=== PATIENT | male | born 1980 | race Caucasian/White ===

== ENCOUNTER 2018-01-22 19:42 | Emergency (ER) | payer SELFPAY ==
[2018-01-22 19:43] VITALS: BP 176/96; PULSE 108; RESP 16; TEMP 36.8; O2SAT 100; BMI 36.5
--- NOTE | 2018-01-22 22:49 | ED.VISSUMM ---
- ER Visit Summary Date of Service: 01/22/18 Chief Complaint: Laceration History of Present Illness: The patient is a 37 M with no primary care physician. He reports that he was on a ladder cleaning out gutters when it slid on wet pavement out from under it. He reports that he was approximately 4 feet off the ground when the ladder spun and he fell off hitting his head and right elbow. He denies loss of consciousness. His tetanus is up-to-date. He reports that he has had pain is 5-10 severity. Right elbow pain is 7 out of 10 severity. Physical Examination: Vitals: Stable. Afebrile. Head: He has a 10 cm Y-shaped laceration in the superior occipital area of his scalp. There is mild active bleeding. Neck: No vertebral tenderness. Full ROM without difficulty. Cleared by NEXUS criteria. Back: No vertebral tenderness. General: A&O x 3. NAD. Cardiovascular exam: Regular rate and rhythm, no murmur, rub or gallop. Respiratory exam: Chest nontender. No crepitus. Clear to auscultation bilaterally. No wheezes or stridor. Abdominal exam: Soft, nontender, nondistended, normal bowel sounds. No pain in RUQ or LUQ specifically. No peritoneal signs. Extremity: 1 cm laceration to the right arm posteriorly just distal to his elbow. There is no active bleeding.. No pain with range of motion. No pain with axial load of the hand. Test Results: Patient refused x-rays of his elbow. Emergency Department Course and Treatment: Patient refused pain medications. He had his wounds anesthetized and repaired. He tolerated it well. Treatment Plan: Patient will be discharged instructions follow-up the [facility] in 10-14 days for suture removal. Disposition: To home in improved and stable condition. Impression: 1. Fall. 2. Scalp laceration, 10 cm, repaired. 3. Right elbow laceration, 1 cm, repaired. Procedure note: Wound was cleansed with chlorhexidine soap. Anesthetized with 1% lidocaine without epinephrine. Copiously irrigated with normal saline. Wound was explored there is no foreign material present. The scalp wound was irregular and I am unable to close it with adelfo. It was closed with 8 simple interrupted 4-0 ethilon sutures. The elbow wound was closed with 2 simple interrupted 4-0 ethilon sutures. the patient tolerated it well. This note was generated with [employer] dictation software. It may contain incorrect words, spelling, and punctuation that were not noted in review of the chart prior to signing ED Disposition - Plan for ED Patient: Disposition: Home or Assisted Living Chief Complaint: Head Injury Instructions: ED Laceration Scalp Stitch Or Stap Referrals: Cassia Hernandez [NON-STAFF] - 10-14 Days suture removal
[2018-01-22 22:55] VITALS: BP 154/84; PULSE 85; RESP 16; O2SAT 99
--- NOTE | 2018-01-22 22:55 | ED.RN ---
REVIEWED D/C INSTRUCTIONS, FOLLOW UP CARE, AND S/S THAT WOULD WARRANT A RETURN TO THE ED WITH PT. PT VERBALIZED AN UNDERSTANDING AND DENIES FURTHER QUESTIONS FOR THIS RN. PT SKIN P/W/D, RESP EVEN AND UNLABORED, PT A&O X 3, NO DISTRESS NOTED. PT AMBULATED OUT OF ED, GAIT STEADY.
== END 2018-01-22 22:56 | disposition home or self-care (01) ==
LOC: ED 21:47
PROVIDERS: Emergency Provider Emergency Medicine
DX: S01.01XA Laceration without foreign body of scalp, initial encounter (principal); S51.011A Laceration without foreign body of right elbow, initial encounter; R40.2410 Glasgow coma scale score 13-15, unspecified time; W11.XXXA Fall on and from ladder, initial encounter; Y93.9 Activity, unspecified; Y92.9 Unspecified place or not applicable
CPT/HCPCS: 12004; 99283

== ENCOUNTER 2020-08-04 11:00 | Outpatient (RCR) | payer MEDICAID, SELFPAY ==
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
--- NOTE | 2020-06-01 10:52 | HP.PTREVAL ---
CORNELIA BELTRE, It has been my pleasure to treat VANE SPRING over the last 23 visits for L femur fracture, R tibial fracture, L radius fracture.. Please see the progress note below for an update on the physical therapy plan of care! Subjective: To doctor in July. Sleepis fine,wakes up if lies on left side. Steps are OK with handrail. Pain over weekend is 3/10 L groin over weekend. Knee has been OK lately. Activities at home are normal outsid eof laundry to basement. 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 Off work until August 06 when he sees doctor. Having OT to break through UE scar tissue. Pt feels like he needs t be stronger to go back to wrok. More strength in L side. Able to get L foot up to put sock on the other day. Nees to do steps into truck 10 inches adn move up to 150#. Objective/Function: Walks with minimal L trendelnberg defintiely improving. Still wide MANDA but I and confiedent. Step up with L I 7 inch step, higher steps are weaker and tough for patient without UE. Able to transfer onto and off floor with L or right LE. Able to bend and touch floor on L leg now but slow and franklin and unstable. Steps require rail but are reciprocal. Pt still feels weak in L hip and functionally present with L hip weakness but much improved felxibility shown by the ability to get shoe and sock on now in cross legged position. Based on work needs, will need to be stronger to tolerate higher steps into truck and lifting heavier items out of truck to return to work. Appropriate fo rcontinued PT Plan Plan: 3x/week for 4 weeks for. 1. L hip strength. 2. Progression of functional strength especially lifting heavier weights, body mechanics, higher step up repeatedly. 3. Enusre progress of L hip flexibility via HEP and.continue gym progression on machines(I) and home strengthening. Goals still appropriate and new goals set. Call rachele new appointments approved. Goals Goal 1:: Full L forearm pronation, R ankle ROM and L hip ext rotation to help pt I get L shoe adn sock on Goal Time Frame: 4-6 Weeks Goal Progress: Having OT Goal 2:: Walk with no AD community distances without trendelnberg gait safe and I Goal Time Frame: 4-6 Weeks Goal Progress: No Ad, still trendelnberg Goal 3:: 10 inch step up repeatedly with weight without increased pain. Goal Time Frame: 4-6 Weeks Goal Progress: NEW GOAL Goal 4:: Plan to return to work Goal Time Frame: 4-6 Weeks Goal Progress: Progressing Goal 5:: 40/80 LEFS score to improve mobility adn I. Goal Time Frame: 4-6 Weeks Goal Progress: Progressing, appropriate. Goal 6:: Move 150 # weight with good body mechanics without pain increase. Goal Time Frame: 4-6 Weeks Goal Progress: NEW GOAL Anticipated Interventions Patient/Client Instruction: Educate patient on: Condition, Plan of Care For the Purpose of:: To decrease pain, To increase ROM, To improve muscle performance and motor function, To increase tolerance to activity/condition/position, To improve ability of physical actions for home/community/work/leisure Therapeutic Exercise to Include: Strength training, Balance training, Postural training, Flexibilty training, Gait and locomotor training, In an aquatic setting, Passive ROM, Active ROM, Dynamic Lumbar Stabilization For the Purpose of:: To decrease pain, To increase ROM, To improve nutrient delivery to tissue, To improve muscle performance and motor function, To increase tolerance to activity/condition/position, To decrease level of supervision to perform tasks, To improve ability of physical actions for home/community/work/leisure, To improve gait and locomotor functions Please do not hesitate to contact me at [phone] by phone or if you have questions or concerns regarding this new plan of care! Sincerely, Fritz Contreras, DPT, OCS, CSCS
--- NOTE | 2020-07-03 10:01 | HP.PTREVAL ---
CORNELIA BELTRE, It has been my pleasure to treat VANE SPRING over the last 35 visits for L femur fracture, R tibial fracture, L radius fracture.. Please see the progress note below for an update on the physical therapy plan of care! Subjective: Not alot of pain throughout the day. Basement steps are narrow and steep and still not easy. Sleep is OK, left side still hurts and is stiff after a while. Doing msot activities at home, needs to use basket for laundry in basement to get up and dwon steps. Dressing L sock and shoe still challenging , crossing legs is tough but can do it. Sees August 06. Off work at least another month to doctor's office. Doing stretching at home. R ankle sore with overdoing it. Objective/Function: 10 inch step up hesitantly but functionally x10. Single leg RDL today to the floor without pain or giving out. Walking has very minor L trendelenberg much improved but still noticeable and more so on steps. Steps reciprocally up with mild R trendelenberg, descending steps shows more weakness in eccentric control but also improving adn safe without rail. R PF ankle ROM limited and sore. L hip external rotation still about 45 degrees with lots of tensiona dn firm endfeel still limiting ability to put sock on comfortably. Overall doing much better than I thought he would be with pain, function. Appropriate to cotvaheue one more month for mirnal progression to return to work in [employer]. Fair prognosis. Plan Plan: 2x/week for 4 weeks to progrress to work simulation ex adn continue R hip strength progressing to I home program and ful l work release. Focus on strength L hip, functional progression of lifting and moving boxes, high step ups with item in hand etc. May also focus on L hip ext rotation adn R ankle PF Goals Goal 1:: Step up confidently 12 inch step to mimic work needs without hesitation or concerns. Goal Time Frame: 2-4 Weeks Goal Progress: NEW GOAL Goal 2:: Walk with no AD community distances without trendelnberg gait safe and I Goal Time Frame: 4-6 Weeks Goal Progress: Goal Met Goal 3:: 10 inch step up repeatedly with weight without increased pain. Goal Time Frame: 4-6 Weeks Goal Progress: Goal Met, but hesitant Goal 4:: Plan to return to work Goal Time Frame: 4-6 Weeks Goal Progress: needs strength Goal 5:: 40/80 LEFS score to improve mobility adn I. Goal Time Frame: 4-6 Weeks Goal Progress: Goal Met Goal 6:: Move 150 # weight with good body mechanics without pain increase. Goal Time Frame: 4-6 Weeks Goal Progress: Progressing Anticipated Interventions Patient/Client Instruction: Educate patient on: Condition, Plan of Care For the Purpose of:: To decrease pain, To increase ROM, To improve muscle performance and motor function, To increase tolerance to activity/condition/position, To improve ability of physical actions for home/community/work/leisure Therapeutic Exercise to Include: Strength training, Balance training, Postural training, Flexibilty training, Gait and locomotor training, In an aquatic setting, Passive ROM, Active ROM, Dynamic Lumbar Stabilization For the Purpose of:: To decrease pain, To increase ROM, To improve nutrient delivery to tissue, To improve muscle performance and motor function, To increase tolerance to activity/condition/position, To decrease level of supervision to perform tasks, To improve ability of physical actions for home/community/work/leisure, To improve gait and locomotor functions Please do not hesitate to contact me at [phone] by phone or if you have questions or concerns regarding this new plan of care! Sincerely, REBECCA RolleT, OCS, CSCS
--- NOTE | 2020-08-04 10:21 | HP.PTREVAL_ITS ---
CORNELIA BELTRE, It has been my pleasure to treat VANE SPRING over the last 44 visits for L femur fracture, R tibial fracture, L radius fracture.. Please see the progress note below for an update on the physical therapy plan of care! Subjective: To doctor . Feels about ready to be done, finishes up with OT today. Pain is not an issue. R ankle remains sore much of time. Putting on left sock and tying shoe remains difficult due to flexibility. Can reach down and put it over toes but is challenging and takes extra time. Up and down steps is easy but steps at hoe are slower due to being narrower. Activities at home are pretty normal they might take a little longer. Tried playing basketball the other day at [facility]. [place]ring if body will hold up when he goes back. Can do what he needs to do but not sure about the volume. Doctor to decide this week. Sleeping on left side is tough and wakes him up, normally sleeps on right. Jean Marie kelsey stretching daily at home. Objective/Function: ROM ankle ssymmetrical and without pain with 5/5 strength. ROM knees WFL to 120+ B and without pain and 5/5 strength. ROM hips limited in flexiona dn ext rotation L vs R with groing pain mildly. 45 ext rot L and 55 R and 110 flexion R and 100 L. Extension and abduction are functional and near symterical. 4+/5 hp ext B, 5/5 abduction and flexion. Walking with a very slight trrendelenberg L but significantly improved. Steps arereciprocal with out lincoln easily ascend adn descend, can do 12 step easily with either leg. Plan Plan: Pt to doctor on Thr. Likely nearing potential with function. Appears ready to attempt return to wral, would recommend partial days to start to wean volume and montior tolerance. Pt to call after doctor visit to set up more therapy if desired by doctor or for D/C. Goals Goal 1:: Step up confidently 12 inch step to mimic work needs without hesitation or concerns. Goal Time Frame: 2-4 Weeks Goal Progress: Goal Met Goal 2:: Walk with no AD community distances without trendelnberg gait safe and I Goal Time Frame: 4-6 Weeks Goal Progress: Goal Met Goal 3:: 10 inch step up repeatedly with weight without increased pain. Goal Time Frame: 4-6 Weeks Goal Progress: Goal Met Goal 4:: Plan to return to work Goal Time Frame: 4-6 Weeks Goal Progress: needs strength Goal 5:: 40/80 LEFS score to improve mobility adn I. Goal Time Frame: 4-6 Weeks Goal Progress: Goal Met Goal 6:: Move 150 # weight with good body mechanics without pain increase. Goal Time Frame: 4-6 Weeks Goal Progress: Progressing Anticipated Interventions Patient/Client Instruction: Educate patient on: Condition, Plan of Care For the Purpose of:: To decrease pain, To increase ROM, To improve muscle performance and motor function, To increase tolerance to activity/condition/position, To improve ability of physical actions for home/community/work/leisure Therapeutic Exercise to Include: Strength training, Balance training, Postural training, Flexibilty training, Gait and locomotor training, In an aquatic setting, Passive ROM, Active ROM, Dynamic Lumbar Stabilization For the Purpose of:: To decrease pain, To increase ROM, To improve nutrient delivery to tissue, To improve muscle performance and motor function, To increase tolerance to activity/condition/position, To decrease level of supervision to perform tasks, To improve ability of physical actions for home/community/work/leisure, To improve gait and locomotor functions Please do not hesitate to contact me at [phone] by phone or if you have questions or concerns regarding this new plan of care! Sincerely, Fritz Contreras, DPT, OCS, CSCS
--- NOTE | 2020-08-04 11:28 | HP.OTDCSUM_ITS ---
It has been my pleasure to treat VANE SPRING under orders from CORNELIA BELTRE, for the diagnosis of closed displaced transverse fx of shaft of left radius without routine heal for a total of 18 visit(s). Please see the following information for a summary of their discharge status. % Improvement: 95 Objective/Function: pt demo with a left agricultural technician strength of 132# this is increase from 65#. a left lateral pinch of 12# a increase from 4#. left tripod pinch 22# increase from 12#. left tip pinch 16# increase from 8#. pt demo full functional left agricultural technician and pinch strength to perform ADLs and IADLs. left wrist ROM 80/70. left forearm sup 75*. left forearm pronation 70*. pt states he complains of proximal radial had discomfort with playing ball with her dtr. and feeling of tightness with resting left forearm on table top- pt states more of a sudden pain and feeling of something at proximal head. pt has met OT goals and was recomented for pt to cont. with stretching and strengtheing with his HEP. Patient Goals: Regain Mobility, Regain Strength, Decrease Pain, Use Hand/Wrist/Arm Normally Again, Be More Independent in ADLS, Decrease Sensitivity Goal:: pt will demo a increase in left Shoulder MMT to 5/5 to increase pts ind. with ADLs and IADLs. Pt willl demo a increase in left biceps/triceps MMT to 5/5 to increase pts ind. with home mtg tasks. pt will demo a increase in left agricultural technician strength to 95# or greater to increase pts ind.with ADLs and IADLs by d/ c Goal:: pt will demo a increase in left forearm pronation to 70* or greater to increase pts ind. with computer tasks by d/c Goal:: pt will report pain no greater than 1/10 with use of left UE with ADLs and IADLs by d/c Goal:: pt will demo understanding of scar mtg and desensitization at 3rd session by d/c Plan: D/C Discharge Comments: Pt was seen for 18 OT visit following a radius fx. pt has made great gains in ROM and strength. pt has met OT goals and will cont. with a HEP to cont to increase/ maintain his strength. pt agree to POC. If there are questions or concerns regarding this patient's occupational therapy, please fell free to call me at [phone]. Thank you for the referral of this patient. Sincerely, Carolyn Dia, OTR/L, CHT
--- NOTE | 2020-08-17 09:37 | HP.PTDCNRP_ITS ---
BRANDON SPRING was seen in my office for initial evaluation on 03/24/20. The following Plan of Care was established for this patient: Initial Frequency: 3x /Week Initial Duration: 4-6 Weeks Patient/Client Instruction: Educate patient on: Condition, Plan of Care For the Purpose of:: To decrease pain, To increase ROM, To improve muscle performance and motor function, To increase tolerance to activity/condition/position, To improve ability of physical actions for home/community/work/leisure Therapeutic Exercise to Include: Strength training, Balance training, Postural training, Flexibilty training, Gait and locomotor training, In an aquatic setting, Passive ROM, Active ROM, Dynamic Lumbar Stabilization For the Purpose of:: To decrease pain, To increase ROM, To improve nutrient delivery to tissue, To improve muscle performance and motor function, To increase tolerance to activity/condition/position, To decrease level of supervision to perform tasks, To improve ability of physical actions for home/community/work/leisure, To improve gait and locomotor functions This patient was last seen in our office 08/04/20. Pertinent comments regarding their Physical therapy will appear below: Pt seen 44 visits. Has f/u with doctor after last recheck and left me the following messge: Bairon Hu Brandon Radha here. Sorry took so long to get back to you. Plan is for me now to be done with Therapy and see how it goes on my own. He said all x- rays looked good and released me back to work 2-3 days a week for 3 weeks. I actually worked 2 days this week. Leg held up ok, just a little bone soreness in thigh and some soreness all over but everything is holding up so far. Thank you and everyone there for all the help. Will discontinue at this time. At this point I will be discontinuing this patient from physical therapy. I would be happy to see this patient again in the future if found appropriate by the physician. Thank you! Fritz Contreras, DPT, OCS, CSCS
== END 2020-08-04 19:00 | disposition home or self-care (01) ==
LOC: OT 11:00
DX: S72.362 Displaced segmental fracture of shaft of left femur (principal); S82.51XD Displaced fracture of medial malleolus of right tibia, subsequent encounter for closed fracture with routine healing; S52.322D Displaced transverse fracture of shaft of left radius, subsequent encounter for closed fracture with routine healing; S62.244D Nondisplaced fracture of shaft of first metacarpal bone, right hand, subsequent encounter for fracture with routine healing; S81.012D Laceration without foreign body, left knee, subsequent encounter
CPT/HCPCS: 97014; 97110; 97113; 97140; 97163; 97164; 97166; 97530; G0283